=== PATIENT | male | born 1985 | race Caucasian/White ===

== ENCOUNTER 2022-03-30 20:32 | Emergency (ER) | payer BC ==
[2022-03-30] MEDS ORDERED: Aspirin 81 MG Tab.Chew PO ONE (20:51)
[2022-03-30 21:22] LABS: CARBON DIOXIDE,CO2 29.1 mmol/L (21.0-32.0); POTASSIUM,K 3.7 mmol/L (3.5-5.1)
[2022-03-30 21:45] LABS: CORONAVIRUS COVID-19 NAA NEGATIVE (NEGATIVE); INFLUENZA A NAA NEGATIVE (NEGATIVE); INFLUENZA B NAA NEGATIVE (NEGATIVE)
== END 2022-03-30 22:08 | disposition home or self-care (01) ==
LOC: MW.ED 20:32
DX: R07.89 Other chest pain (principal); H91.92 Unspecified hearing loss, left ear; Z20.822 Contact with and (suspected) exposure to COVID-19
CPT/HCPCS: 0240U; 36415; 71045; 80053; 84484; 85025; 99285; A9270